=== PATIENT | male | born 1945 | race Caucasian/White ===

== ENCOUNTER → 2024-01-15 11:35 | Outpatient (REF) | payer MEDICARE, SELFPAY | LOC: HWRAD 11:35 | PROVIDERS: ATTENDING PHYSICIAN Physician Assistant; FAMILY PHYSICIAN Family Medicine | DX: E27.8 Other specified disorders of adrenal gland (principal) | CPT/HCPCS: 74150 ==

== ENCOUNTER → 2024-01-23 06:58 | Outpatient (REF) | payer MEDICARE, SELFPAY | LOC: HWRCS 06:58 | PROVIDERS: ATTENDING PHYSICIAN Internal Medicine Cardiovascular Disease; FAMILY PHYSICIAN Family Medicine | DX: I25.10 Atherosclerotic heart disease of native coronary artery without angina pectoris (principal) | CPT/HCPCS: 93306 ==

== ENCOUNTER → 2024-02-07 09:08 | Outpatient (REF) | payer MEDICARE, SELFPAY | LOC: HWRAD 09:08 | PROVIDERS: ATTENDING PHYSICIAN Internal Medicine; FAMILY PHYSICIAN Family Medicine | DX: Z94.0 Kidney transplant status (principal) | CPT/HCPCS: 76705 ==